=== PATIENT | male | born 1995 | race African-American/Black ===

== ENCOUNTER 2016-03-07 20:54 | Emergency (ER) | payer BC ==
[~2016-03-07] VITALS: Ht 195.6 cm; Wt 131.5 kg
[~2016-03-07 20:54] MED LIST: BENADRYL25 MG PO; DOXYCYCLINE 10100 MG PO; IBUPROFEN 600600 M1 PO; NOHOMEMEDICATIONS; NORCO 5-325 TA1 EACH PO
[2016-03-07] MEDS ORDERED: KEFLEX500 MG PO (22:03)
[2016-03-07] MEDS ORDERED: DELTASONE20 MG PO (22:11)
[2016-03-07 22:48] VITALS: BP 122/68
== END 2016-03-07 22:49 | disposition home or self-care (01) ==
LOC: ER 20:54
DX: T78.49XA Other allergy, initial encounter (principal); L81.8 Other specified disorders of pigmentation; L03.113 Cellulitis of right upper limb; X58.XXXA Exposure to other specified factors, initial encounter

== ENCOUNTER 2017-03-24 16:34 | Emergency (ER) | payer BC, OTHER ==
--- NOTE | ~2017-03-24 | EKG ---
[address] [address] ELECTROCARDIOGRAM REPORT Name: REVASHELLEYIKE RHOADES Room #: DEP [facility]#: [id number] Admission: 03/24/17 Attend Phys: Discharge: 03/24/17 Date of : [birth year] Report #: [id number] THIS REPORT FOR: //name// [facility] ED Test Date: 2017-03-24 Test Time: 18:07:31 Pat Name: SHELLEY ARDON Department: Room: Gender: [employer] Professor: PARAS : 1995 Requested By: Carlos A Laws Order Number: [id number] MD: Bon Reddy Measurements Intervals [place] Rate: 71 P: 37 ND: 132 QRS: 34 QRSD: 92 T: -3 QT: 378 QTc: 411 Interpretive Statements Sinus rhythm No previous ECG available for comparison Electronically Signed On 03-25-2017 9:09:31 FINANCIAL COACH by Bon Reddy [email or web address] <ELECTRONICALLY SIGNED> By: Bon Reddy MD 03/25/17 0909 1807 180 Bon Reddy MD /LISY
[~2017-03-24 16:34] MED LIST changes: +DELTASONE20 MG PO; +KEFLEX500 MG PO
[2017-03-24] MEDS ORDERED: FLONASE 0.05%50 MCG NASAL (19:09)
[2017-03-24] MEDS ORDERED: PREDNISONE 20 M20 MG PO (19:09)
== END 2017-03-24 19:45 | disposition home or self-care (01) ==
LOC: ER 16:34
DX: J01.90 Acute sinusitis, unspecified (principal)